=== PATIENT | female | born 1985 | race Caucasian/White ===

== ENCOUNTER 2023-03-14 16:52 | Inpatient (IN) | payer OTHER ==
[~2023-03-14] VITALS: Ht 167.6 cm; Wt 72.6 kg
[2023-04-02] MEDS ORDERED: IRON236 MG (07:03)
[2023-04-02] MEDS ORDERED: PRENATAL CAPLE1 EAC1 (07:03)
== END 2023-04-04 15:40 | disposition home or self-care (01) | DRG 807 ==
LOC: OB/GYN 04-01 13:45 → LDR 04-02 05:35 → OB/GYN 04-02 17:44
PROVIDERS: ADMIT Obstetrics & Gynecology Gynecology; ATTEND Obstetrics & Gynecology Gynecology
PROC: 10E0XZZ Delivery of Products of Conception, External Approach (ICD-10-PCS; principal; 2023-04-02)
PROC: 0KQM0ZZ Repair Perineum Muscle, Open Approach (ICD-10-PCS; 2023-04-02)
PROC: 4A1HXCZ Monitoring of Products of Conception, Cardiac Rate, External Approach (ICD-10-PCS; 2023-04-02)
DX: O70.1 Second degree perineal laceration during delivery (principal); Z37.0 Single live birth; Z3A.37 37 weeks gestation of pregnancy; Z20.822 Contact with and (suspected) exposure to COVID-19

== ENCOUNTER 2023-03-28 09:26 | Outpatient (CLI) | payer OTHER | END 2023-03-28 09:52 | disposition home or self-care (01) | LOC: NST 09:26 | PROVIDERS: ATTEND Obstetrics & Gynecology Gynecology | DX: Z34.83 Encounter for supervision of other normal pregnancy, third trimester (principal) ==

== ENCOUNTER 2024-09-23 10:18 | Outpatient (CLI) | payer OTHER ==
[~2024-09-23 10:18] MED LIST: IRON236 MG; PRENATAL CAPLE1 EAC1
== END 2024-09-23 10:27 | disposition home or self-care (01) ==
LOC: MAMO-SONO 10:18
PROVIDERS: ATTEND Obstetrics & Gynecology Gynecology
DX: N63.0 Unspecified lump in unspecified breast (principal); N64.4 Mastodynia; N60.11 Diffuse cystic mastopathy of right breast